=== PATIENT | male | born 1950 | race Caucasian/White ===

== ENCOUNTER 2025-08-07 10:09 | Inpatient (IN) | payer OTHER, MEDICARE ==
[~2025-08-07] VITALS: Ht 182.9 cm; Wt 106.4 kg
--- NOTE | 2025-08-07 10:18 | ELECTROCARDIOGRAPH REPORT ---
[facility] Test Date: 2025-08-07 Test Time: 10:14:52 Pat Name: SARAH HAGEN Department: [facility]- Patient ID: [facility]-[id number] Room: [place] [id number] Gender: M Rolling Attendant: : 1950 Requested By: LEATHA ALARCON Order Number: [id number] Reading MD: Dr. ALVARADO Pedersen Measurements Intervals [place] Rate: 71 P: 38 IL: 221 QRS: -17 QRSD: 136 T: 148 QT: 432 QTc: 470 Interpretive Statements Sinus rhythm Ventricular premature complex Prolonged IL interval Probable left atrial enlargement Nonspecific intraventricular conduction delay Inferior infarct, old Consider anterior infarct Lateral leads are also involved Electronically Signed On 08-09-2025 18:38:[address] ALVARADO Pedersen Please click the below link to view image of tracing.
--- NOTE | 2025-08-07 10:56 | Physician Documentation ---
History of Present Illness ~ Chief Complaint: Chest Pain Stated Complaint: CP/PRESSURE Time Seen by MD: 10:32 HPI Patient presents as a transfer from [facility]. His transfer records reviewed. Patient has past medical history of coronary artery disease status post three-vessel CABG in 2013, recent bowel surgery. He presented with chief complaint of chest heaviness. Cardiology follow up with Dr. Mueller at the [place]. Per documentation does not take medications as prescribed. He takes his aspirin only when he feels like he needs it. Had an echocardiogram that was performed July 04, 2025. LVEF was 35-40%. There was mild LVH. RV mildly dilated with mildly reduced systolic function. Mild MR cardiac catheterization performed at [facility] in 2021. He had severe picayune vessel coronary artery disease and some occluded grafts. Medical management was recommended at the time. Labs reviewed from [facility]: Hemoglobin 13.7, hematocrit 41.5. Platelets low at 94. Sodium 138, potassium 3.6. His BUN is 16 creatinine 0.84. Troponin 0.03. Heart score was documented as six by the transferring center. They were unable to do a stress test at the facility as it is a weekend and therefore was transferred for stress testing. Patient states he has been having chest pain intermittently for which he takes nitroglycerin. Last night around 11 30 he started getting chest pain that was described as pressure in the center of the chest. Associated shortness for breath, dizziness, diaphoresis. It did not go away after taking for nitro so he presented to the emergency department at [facility]. He had a recent bowel surgery last month which was an open surgery secondary to necrotic bowel. No abdominal pain. Passing gas and having normal bowel movements. He has known history of heart failure with reduced ejection fraction. He is not on guideline directed medical therapy. He states he is short of breath with minimal exertion. Was asked, but otherwise denies review of systems. Medication Reconciliation Allergies: Coded Allergies: No Known Allergies (Unverified , 08/07/25) Review of Systems ROS Patient complains of chest pain and shortness for breath as noted in HPI. No orthopnea or PND reported. Was asked, but otherwise denies review of systems. Physical Exam Vital Signs: RN Vital Signs have been reviewed: Yes, Temperature: 98.2, Source: Oral, Heart Rate: 72, Respiratory Rate: 16, BP: 115/74, Pulse Oximetry: 95, Weight: 191.850 Oxygen Flow Rate: 0 Pulse Oximetry Reflects: adequate oxygenation Physical Exam General: Awake, alert, oriented. No apparent distress Neck: Supple. Normal range of motion. No JVD Respiratory: Lungs are clear to auscultation bilaterally. No respiratory distress. Chest: Normal shape and size. No accessory muscle use. Cardiovascular: Regular rate and rhythm. S1-S2. No murmur, gallop, rub. Gastrointestinal: Abdomen is soft. Nontender to palpation. Bowel sounds present. Midline abdominal scar well approximated. Extremities: No lower extremity edema, cyanosis or clubbing. Neurologic: Alert and oriented x4. Nonfocal Psychiatric: Normal mood and affect. Skin: Normal color. Warm and dry. Progress Progress Note 1220: Case discussed with Dr. Tyler, hospitalist who agrees to admit the patient for further evaluation and management of his chest pain. Results/Orders Results/Orders Orders - LYUDMILA BRYANT NP Hs Troponin I W Calculations (08/07/25 12:56) Page Hospitalist (08/07/25 11:52) Fill Out Med Reconciliation (08/07/25 11:52) Completed Orders - LYUDMILA BRYANT NP Hs Troponin I W Calculations (08/07/25 10:56) Medications Received in ER Medications (Trade) Dose Ordered Sig/Irvin Route PRN Reason Start Time Stop Time Status Last Admin Dose Admin Sodium Chloride 1,000 ml @ 50 mls/hr Q20H IV 08/07/25 12:40 08/07/25 13:04 50 MLS/HR Vital Signs 08/07/25 08/07/25 08/07/25 08/07/25 10:11 10:34 10:41 11:24 Temp 98.2 Pulse 72 72 65 Resp 16 16 16 16 B/P (MAP) 115/74 110/66 (81) 111/73 (86) Pulse Ox 95 95 95 O2 Flow Rate 0 0 0 Laboratory Tests Test 08/07/25 11:17 08/07/25 12:49 Troponin I High Sensitivity 18 Medical Decision Making Additional information obtaine: old records Findings Patient presented as a transfer secondary to chest pain for a stress test. He has history of coronary artery disease with history of three-vessel CABG. Last angiogram revealed occlusion of two of his vein grafts. His MARIN to LAD was open at the time. He has been having chest pain intermittently for which he takes nitroglycerin. This usually resolves his pain however last night he took four nitroglycerin and his pain did not resolve prompting his presentation to the emergency department. Pain in the center of the chest and nonradiating. Given his history he was sent for stress testing/cardiology evaluation. His high sensitivity troponin was negative x1. Being admitted to the hospitalist service for further evaluation and management. Of note, he is noncompliant with his medications. He has been told to take a statin however he does not wish to take it. He has also been given guideline directed medical therapy for his heart failure with reduced ejection fraction which he does not take other than carvedilol. I considered high risk diagnoses such as acute myocardial infarction, pulmonary embolism, aortic dissection, pericarditis/myocarditis, pneumothorax, and pneumonia among other diagnoses and I reviewed the ECG for ischemia, arrhythmia, myocardial disease or other cardiac abnormality. He underwent a chest x-ray at the referring facility that was without pneumothorax, pneumonia. Patient being admitted for further evaluation and management of his chest pain. Case discussed with Dr. Mclaughlin who agreed to evaluate patient for admission. Heart Score: 6 Differential Dx:Considerations: Include: angina, aortic dissection, chest wall pain, CHF, esophageal reflux/spasm, myocardial infarction, pericarditis, pleuritis, pneumonia, pulmonary embolus Departure Disposition: 09 ADMITTED INPATIENT Admitted to Inpatient Unit: to hospitalist Admission Level of Care: PCU with Tele Impression: Primary Impression: Chest pain Qualified Codes: R07.9 - Chest pain, unspecified Additional Impression: Systolic heart failure Qualified Codes: I50.22 - Chronic systolic (congestive) heart failure Referrals: NO PRIMARY CARE PROVIDER (PCP) Signature Scribe Signature: No scribe Attestation: The note accurately reflects work and decisions made by me.Lyudmila Bryant - GRZEGORZ 08/07/25 13:15 This note was created with the assistance of voice recognition software whereby errors in grammar, syntax, and/or spelling may have occurred despite active proofreading efforts by the author. Please do not hesitate to contact the provider for clarification or for questions regarding the content of this document. LYUDMILA BRYANT NP Aug 07, 2025 10:56
[2025-08-07] MEDS ORDERED: potassium Cl 40MEQ/1/2NS 520ml 520 ML IV PRN (12:40)
[2025-08-07] MEDS ORDERED: morphine 4 MG/ML inj SYRINge IV PRN ×2 (12:40)
[2025-08-07] MEDS ORDERED: ondansetron/PF 4mg/2ml inj IV PRN (12:40)
[2025-08-07] MEDS ORDERED: HYDROcodone/acetaminophen 5mg/325mg tablet PO PRN (12:40)
[2025-08-07] MEDS ORDERED: magnesium hydroxide 30ml (MOM) UD suspension PO PRN (12:40)
[2025-08-07] MEDS ORDERED: HYDROcodone/acetaminophen 10/325mg tab PO PRN (12:40)
[2025-08-07] MEDS ORDERED: magnesium sulf-water 2g/50mL 50 ML IV PRN (12:40)
[2025-08-07] MEDS ORDERED: magnesium Cl slow-release 64mg tablet PO PRN (12:40)
[2025-08-07] MEDS ORDERED: magnesium sulf-water 4G/100mL 100 ML IV PRN (12:40)
[2025-08-07] MEDS ORDERED: bisacodyl 10mg suppository rectal RC PRN (12:40)
[2025-08-07] MEDS ORDERED: potassium Cl 20 mEq SR tablet PO PRN ×2 (12:40)
[2025-08-07] MEDS: normal saline 1000ml 1,000 ML IV SCH (13:04)
[2025-08-07] MEDS ORDERED: CARV3.12 PO (14:35)
[2025-08-07 17:37] VITALS: BP 111/72; PULSE 78; RESP 18; TEMP 97.7; O2SAT 95
--- NOTE | 2025-08-07 17:58 | HISTORY AND PHYSICAL ---
History & Physical Providers to ~ History of Present Illness Reason for Admit\Complaint: Shortness of breaths on exertion getting worse History of Present Illness Patient is 74-year-old male with coronary artery disease, history of necrotic bowel status post exploratory laparotomy, bipolar disorder, heart failure with reduced ejection fraction, hypertension, history of CABG three way bypass done in past, he went to [facility] because he was feeling chest pressure but when I evaluated him he denied any chest pain to me. He follows with Dr. Danyel Mueller in [place] in [facility]. Denied any other symptoms no nausea no shooting pain towards back or any radiation of chest pain anywhere. He took nitro before going to the ER which relieved his chest pain. He takes aspirin patient is not consistent in taking other cardiac medications. He denied any recent use of alcohol tobacco or any recreational drugs. He is a former smoker. As per [facility] heart score six unable to do stress testing in this facility on weekend and that is the main reason they transferred the patient to [facility]. Discharge diagnosis unstable angina. He denied any ankle swelling shortness of breaths or any other cardiac symptoms to me. All records from [facility] and ER records reviewed. As per records Patient presents as a transfer from [facility]. His transfer records reviewed. Patient has past medical history of coronary artery disease status post three-vessel CABG in 2013, recent bowel surgery. He presented with chief complaint of chest heaviness. Cardiology follow up with Dr. Mueller at the [place]. Per documentation does not take medications as prescribed. He takes his aspirin only when he feels like he needs it. Had an echocardiogram that was performed July 04, 2025. LVEF was 35-40%. There was mild LVH. RV mildly dilated with mildly reduced systolic function. Mild MR cardiac catheterization performed at [facility] in 2021. He had severe ely [place] vessel coronary artery disease and some occluded grafts. Medical management was recommended at the time. Labs reviewed from [facility]: Hemoglobin 13.7, hematocrit 41.5. Platelets low at 94. Sodium 138, potassium 3.6. His BUN is 16 creatinine 0.84. Troponin 0.03. Heart score was documented as six by the transferring center. They were unable to do a stress test at the facility as it is a weekend and therefore was transferred for stress testing. Allergies: Coded Allergies: No Known Allergies (Unverified , 08/07/25) Home Medications Home Medications Active Reported Coreg (Carvedilol) 3.125 Mg Tablet 1 Tab PO Q12H 30 Days Past Medical History Past Medical History coronary artery disease, history of necrotic bowel status post exploratory laparotomy, bipolar disorder, heart failure with reduced ejection fraction, hypertension, history of CABG three way bypass done in past, portal hypertension with esophageal varices, history of incarcerated hernia, noncompliance with medication. Past Surgical History Surgical History Comment Status post exploratory laparotomy, lysis of addition, repair of ventral hernia. Past Social History Social History Comment Patient lives by himself with his cat. He is able to ambulate in his house. Denied use of any alcohol tobacco or any recreational drugs. ROS ROS Review of system as mentioned above in HPI rest of the review of system unremarkable Exam Vitals: Vital Signs Date Time Temp Pulse Resp B/P (MAP) Pulse Ox O2 Delivery O2 Flow Rate FiO2 08/07/25 17:37 97.7 78 18 111/72 (85) 95 08/07/25 14:59 0 General: General-patient not in any acute distress, alert awake oriented, chronically ill-appearing, obese, looks comfortable HEENT-atraumatic normocephalic, neck supple without elevated JVD, no thyromegaly or carotid bruit. No lymphadenopathy bilaterally. Eyes-no icterus or pallor seen in eyes Chest-clear to auscultation bilaterally, breathing nonlabored no tachypnea, no wheezing, no crepitation, no crackles. Heart-S1-S2 normal, regular heart rate no murmur Abdomen bowel sounds positive on auscultation, soft nondistended nontender no guarding, no rigidity Skin no active skin rash. Old healed midline scar present over abdomen Neurology-grossly intact, nonfocal alert awake oriented Extremity- no pedal edema able to move all 4 extremities Psychiatry - patient is not confused or agitated cooperated during physical exa mination Advance Care Planning Advanced Care plannin - 30 Minutes Additional Plan Patient is 74-year-old male with coronary artery disease, history of necrotic bowel status post exploratory laparotomy, bipolar disorder, heart failure with reduced ejection fraction, hypertension, 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 He is admitted today for unstable angina. Ordered echocardiogram stress testing. Patient is strongly advised to be compliant with the cardiac medication and risks explained. We will continue to monitor patient's labs and vitals closely . All labs, d iagnostic workup, old records and ER records and outpatient records [facility] rajiv Hawk reviewed . Needs physical therapy evaluation before discharge . Code status discussed with the patient patient wishes full code Time spent in discussing code status 16 minutes. We will do home medication reconciliation once updated in electronic by nursing staff or pharmacist. Further management depending on response to treatment I will continue to follow patient in a.m. consult [facility] in a.m. after stress testing results. Date of Service: Aug 07, 2025 Billing Provider: GONZALEZ ROJO MD Common Visit Codes: 62456-TIXSEOR INP/OBS CARE (HIGH) Secondary Visit Codes: 03987-FSYVEMPX CARE PLAN 30 MINUTES GONZALEZ ROJO MD Aug 07, 2025 17:58
[2025-08-07] MEDS: K and/or MAG REPLACEMENT MC SCH (20:00)
[2025-08-07] MEDS: heparin, porcine 5000 units/ml vial SQ SCH (20:00)
[2025-08-07 22:00] VITALS: BP 111/66; PULSE 68; RESP 14; TEMP 98.2; O2SAT 95
[2025-08-07 23:02] LABS: MEAN PLATELET VOLUME 7.3 FL (7.4-10.4); RED CELL DISTRIBUTION WIDTH 14.5 % (11.5-14.5)
[2025-08-07 23:20] LABS: CREATININE 0.93 MG/DL (0.60-1.10); TOTAL CARBON DIOXIDE 24.5 MMOL/L (24-32); eCRCL 76 ML/MIN; eGFR 79 ML/MIN
[2025-08-08] VITALS (15 sets, daily range): BP systolic 96–121; BP diastolic 57–74; PULSE 62–97; RESP 14–23; TEMP 97.8–98.8; O2SAT 93–96
[2025-08-08 06:12] LABS: MEAN PLATELET VOLUME 7.3 FL (7.4-10.4); RED CELL DISTRIBUTION WIDTH 14.5 % (11.5-14.5)
[2025-08-08] MEDS: regadenoson 0.4mg/5ml syringe IV ONE (09:47)
--- NOTE | 2025-08-08 11:07 | RADIOLOGY REPORT ---
HISTORY: UNSTABLE ANGINA TECHNIQUE: At peak stress, 34.1 mCi of sestamibi was administered intravenously. Soon thereafter, gated SPECT imaging of the heart was performed with the patient in the supine position. At rest, 8.2 mCi of sestamibi was administered intravenously. Soon thereafter, gated SPECT imaging of the heart was performed with the patient in the supine position. FINDINGS: There is a large transmural perfusion defect at the inferior wall which appears minimally reversible on rest images. There is a mild perfusion defect at the cardiac apex which appears reversible on rest images. The left ventricular cavity dilated with global hypokinesis. Calculated LVEF is 26 %. IMPRESSION: Mild perfusion defect at the cardiac apex which appears reversible on rest images. Large transmural perfusion defect at the inferior wall which appears minimally reversible on rest images. LVEF is 26%. Global hypokinesis.
--- NOTE | 2025-08-08 12:08 | CONSULTATION REPORT - RESIDENT ---
Consult Providers to CC Resident Creating Document: BERTHAMAGDIELJERRY RES History of Present Illness Reason for Admit\Complaint: exertional sob History of Present Illness 74 yr old male Patient transfer from [facility] for CAD stress test .Patient has past medical history of HFrEF, coronary artery disease status post three-vessel CABG in 2013, recent bowel surgery presented with chief complaint of chest heaviness and exertional sob during the time of presentatioon but subsided now. Cardiology follow up with Dr. Mueller at the [place]. Per documentation does not take medications as prescribed. He takes his aspirin only when he feels like he needs it. Had an echocardiogram that was performed July 04, 2025. LVEF was 35-40%. There was mild LVH. RV mildly dilated with mildly reduced systolic function. He had severe ak chin vessel coronary artery disease and some occluded grafts. Medical management was recommended at the time. Patient states he has been having chest pain intermittently for which he takes nitroglycerin. his chest pressure is associated with shortness for breath, dizziness, diaphoresis. It did not go away after taking for nitro so he presented to the emergency department at [facility] and subsequently transferred here. reason for consulation : Positive lexiscan Allergies: Coded Allergies: No Known Allergies (Unverified , 08/07/25) Home Medications Home Medications Active Reported Coreg (Carvedilol) 3.125 Mg Tablet 1 Tab PO Q12H 30 Days Past Medical History Past Medical History coronary artery disease, history of necrotic bowel status post exploratory laparotomy, bipolar disorder, heart failure with reduced ejection fraction, hypertension, history of CABG three way bypass done in past, portal hypertension with esophageal varices, history of incarcerated hernia, noncompliance with medication. Past Surgical History Surgical History Comment Status post exploratory laparotomy, lysis of addition, repair of ventral hernia. Past Social History Social History Comment Patient lives by himself with his cat. He is able to ambulate in his house. Denied use of any alcohol tobacco or any recreational drugs. ROS ROS Review of system as mentioned above in HPI rest of the review of system unremarkable Past Surgical History Surgical History Comment Past Medical History coronary artery disease, history of necrotic bowel status post exploratory laparotomy, bipolar disorder, heart failure with reduced ejection fraction, hypertension, history of CABG three way bypass done in past, portal hypertension with esophageal varices, history of incarcerated hernia, noncompliance with medication. Past Surgical History Surgical History Comment Status post exploratory laparotomy, lysis of addition, repair of ventral hernia. Past Social History Social History Comment Patient lives by himself with his cat. He is able to ambulate in his house. Denied use of any alcohol tobacco or any recreational drugs. KIANNA HUTCHISON Review of system as mentioned above in HPI rest of the review of system unremarkable Past Social History Social History Comment Patient lives by himself with his cat. He is able to ambulate in his house. Denied use of any alcohol tobacco or any recreational drugs. KIANNA HUTCHISON Reviewed in full and negative, except positive positive pertinence as history as in HPI Exam Vitals: Vital Signs Date Time Temp Pulse Resp B/P (MAP) Pulse Ox O2 Delivery O2 Flow Rate FiO2 08/08/25 10:01 76 18 108/65 96 Room Air 08/08/25 08:00 0.0 08/08/25 06:00 98.8 General: General-patient not in any acute distress, alert awake oriented, chronically ill-appearing, obese, looks comfortable HEENT-atraumatic normocephalic, neck supple without elevated JVD, no thyromegaly or carotid bruit. No lymphadenopathy bilaterally. no icterus or pallor seen in eyes Chest And respiratory system: clear to auscultation bilaterally, breathing nonlabored no tachypnea, no wheezing, no crepitation, no crackles. Heart-S1-S2 normal, regular heart rate no murmur Abdomen bowel sounds positive on auscultation, soft nondistended nontender no guarding, no rigidity Skin no active skin rash. Old healed midline scar present over abdomen Neurology-grossly intact, nonfocal alert awake oriented Extremity- no pedal edema able to move all 4 extremities Psychiatry - patient is not confused or agitated cooperated during physical examination Diagnostic Data Last Recorded Lab Results: 08/08/25 0600 08/07/25 2250 Additional Plan Coronary arterial disease status post CABG Chronic ischemic heart disease Medication Noncompliance H Received records from Dr. Mueller's office from [facility] on the problems listed as CABG with a MARIN to the diagonal, weaned to the obtuse marginal and vein to the PDA In December 2017, patient presented to [facility] with the inferior wall SC catheterization with severe ak chin disease, marin patent, weans occluded, PCI attempted but unsuccessful LCX and RCA occluded. In September 2021 presentation with a Mercrandall with acute anterior SC severe ak chin CAD including 80% distal left main artery, RCA, LCA subpleural, two saphenous venous grafts occluded, marin to diagonal patient bag filling to the distal LAD, no clear culprit for intervention. In December 16, 2024 Lexiscan stress test with an inferior infarct and EF of 36% today lexiscan showed Mild perfusion defect at the cardiac apex which appears reversible on rest images, Large transmural perfusion defect at the inferior wall which appears minimally reversible on rest images.LVEF is 26%. Global hypokinesis. and we discussed management options and patient opted for conservative medical management and we recommened for op followup with and patient may get outpatient angiography study with if needed. start [id number] ,[id number],crestor 40 mg,nitro 0.4 mg as needed for chest pain. recommended lipid panel - maintain LDL of less than 55 Heart Failure with reduced Ejection Fraction of 26 % echo showed ef of 40 % but lexiscan showed ef of 26 % start GDMT as tolereated with carvedilol,entresto,farxiga,spirinolactone Jerry Deluca IM Resident,PGY-2 Cardiology Patient seen and examined by Dr. Joe ABBASI. Myocardial perfusion scan being abnormal was discussed with patient. Patient is being semi compliant does not been taking his medications regularly. After explaining he wants to try medical therapy. Medical therapy optimized. Recommend follow up with PMD. Sepsis Screening Reassessment Date: Aug 09, 2025 Date of Service: Aug 08, 2025 Billing Provider: BELKIS FRANCIS MD, VENKATESH, DANIELA Aug 08, 2025 12:08 BELKIS FRANCIS MD Aug 09, 2025 19:09
--- NOTE | 2025-08-08 17:33 | CARDIOLOGY REPORT ---
APPROVED REPORT EXAM: Comprehensive 2D, Doppler, and color-flow Echocardiogram. Patient Location: 3023 c Heart Rate: 60's bpm Rhythm: SINUS Indications ANGINA Corporate Tutor: Blake HUNTER MD Previous echo: NONE AVAILABLE 2D Dimensions RVDd 3.1 cm IVSd 1.1 (0.7-1.1cm) LVDd 5.5 cm PWd 1.2 (0.7-1.1cm) IVSs 1.4 (0.8-1.2cm) LVDs 4.3 (2.5-4.0cm) PWs 1.4 (0.8-1.2cm) LVOT Diameter 2.35 (1.8-2.4cm) LVEF(%) 44.4 (>50%) FS (%) 22.2 % SV 65.5 ml CO 4.8 L/min M-Mode Dimensions Left Atrium(MM) 3.87 (2.5-4.0cm) Aortic Root 4.12 (2.2-3.7cm) MV EPSS 1.4 (<0.5cm) Aortic Valve AoV Peak Crescencio. 208.1 cm/s AoV VTI 40.3 cm AO Peak GR. 17.3 mmHg AO Mean GR. 10 mmHg LVOT VTI 18.97 cm LVOT Peak Crescencio. 101.6 cm/s MARIA(VTI)/BSA 2.04 cm2/m2 MARIA (VTI) 2.04 cm2 AV DI 0.47 % Mitral Valve MV E Velocity 95.0 cm/s MV Peak Gr. 4 mmHg MV DECEL TIME 140 ms MV A Velocity 87.2 cm/s MV PHT 56 ms E/A Ratio 1.1 MVA (PHT) 3.93 cm2 MV VMax 100.4 cm/s LEFT VENTRICLE Normal LV size and wall thickness. Overall systolic function is moderately reduced. LVEF is 40-45%. RIGHT VENTRICLE RV is normal size and function. RV apex appears dilated. ATRIA The left atrium size is normal. AORTIC VALVE Trileaflet AV appears sclerotic without stenosis. No insufficiency by color and spectral flow Doppler. MITRAL VALVE Mild MV annular calcification without stenosis. Trace regurgitation by color and spectral flow Doppler. TRICUSPID VALVE TV appears structurally normal with trace regurgitation by color and spectral flow Doppler. PULMONIC VALVE Normal PV without stenosis, physiologic insufficiency by color and spectral flow Doppler. GREAT VESSELS Aortic root is dilated, at 4.12 cm. PERICARDIUM Normal pericardium. No effusion. Other Information Study Quality: Adequate Conclusion Normal LV size and wall thickness. Overall systolic function is moderately reduced. LVEF is 40-45%. RV is normal size and function. RV apex appears dilated. The left atrium size is normal. Trileaflet AV appears sclerotic without stenosis. No insufficiency by color and spectral flow Doppler. Mild MV annular calcification without stenosis. Trace regurgitation by color and spectral flow Doppler. TV appears structurally normal with trace regurgitation by color and spectral flow Doppler. Aortic root is dilated, at 4.12 cm. Normal pericardium. No effusion.
--- NOTE | 2025-08-08 19:48 | PROGRESS NOTE ---
Daily Progress Note Providers to CC ~ Antibiotic Timeout Antibiotic Ordered?: No Subjective Patient was seen after he had the stress testing done and waiting for results. His Lexiscan results was abnormal I contacted product support specialist Dr. Pedersen on-call and he evaluated the patient. After his discussion with the patient Dr. Pedersen called me and mentioned that he is looking for conservative management for the patient and he discussed same with family members and patient . Cardiology resident evaluated the patient . We will review cardiology consultation and follow the recommendation. Later today in evening patient's nursing staff contacted me that patient wants to go home and he wants to follow with his own her doctor Dr. Mueller in outpatient setting. Objective Vital Signs Date Time Temp Pulse Resp B/P (MAP) Pulse Ox O2 Delivery O2 Flow Rate FiO2 08/08/25 15:00 97.8 73 23 121/69 (86) 96 Room Air 08/08/25 08:00 0.0 echo- Conclusion Normal LV size and wall thickness. Overall systolic function is moderately reduced. LVEF is 40-45%. RV is normal size and function. RV apex appears dilated. The left atrium size is normal. Trileaflet AV appears sclerotic without stenosis. No insufficiency by color and spectral flow Doppler. Mild MV annular calcification without stenosis. Trace regurgitation by color and spectral flow Doppler. TV appears structurally normal with trace regurgitation by color and spectral flow Doppler. Aortic root is dilated, at 4.12 cm. Normal pericardium. No effusion. NM RONNY SCANIMPRESSION: Mild perfusion defect at the cardiac apex which appears reversible on rest images. Large transmural perfusion defect at the inferior wall which appears minimally reversible on rest images. LVEF is 26%. Global hypokinesis. Result Diagram: 08/08/25 0600 08/07/25 2250 General-patient not in any acute distress, alert awake oriented, chronically ill-appearing, obese, looks comfortable HEENT-atraumatic normocephalic, neck supple without elevated JVD, no thyromegaly or carotid bruit. No lymphadenopathy bilaterally. Eyes-no icterus or pallor seen in eyes Chest-clear to auscultation bilaterally, breathing nonlabored no tachypnea, no wheezing, no crepitation, no crackles. Heart-S1-S2 normal, regular heart rate no murmur Abdomen bowel sounds positive on auscultation, soft nondistended nontender no guarding, no rigidity Skin no active skin rash. 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 He is admitted today for unstable angina. Ordered echocardiogram and stress testing. Patient is strongly advised to be compliant with the cardiac medication and risks explained. 08/08-Patient was seen after he had the stress testing done and waiting for results. His Lexiscan results was abnormal I contacted product support specialist Dr. Pedersen on-call and he evaluated the patient. After his discussion with the patient Dr. Pedersen called me and mentioned that he is looking for conservative management for the patient and he discussed same with family members and patient . Cardiology resident evaluated the patient . We will review cardiology consultation and follow the recommendation. Later today in evening patient's nursing staff contacted me that patient wants to go home and he wants to follow with his own her doctor Dr. Mueller in outpatient setting. We will continue to monitor patient's labs and vitals closely . Code status - full code . We will do home medication reconciliation once updated in electronic records . Further management depending on response to treatment I will continue to follow patient in a.m. Date of Service: Aug 08, 2025 Billing Provider: GONZALEZ ROJO MD Common Visit Codes: 48922-ORRFEIRXLG INP/OBS CARE(HIGH) GONZALEZ ROJO MD Aug 08, 2025 19:48
[2025-08-09 02:00] VITALS: BP 90/51; PULSE 67; RESP 16; TEMP 98.1; O2SAT 92
[2025-08-09 06:00] VITALS: BP 106/56; PULSE 66; RESP 16; TEMP 98.3; O2SAT 95
[2025-08-09 06:05] LABS: MEAN PLATELET VOLUME 7.7 FL (7.4-10.4); RED CELL DISTRIBUTION WIDTH 14.6 % (11.5-14.5)
[2025-08-09 06:17] LABS: CREATININE 0.90 MG/DL (0.60-1.10); TOTAL CARBON DIOXIDE 23.5 MMOL/L (24-32); eCRCL 79 ML/MIN; eGFR 82 ML/MIN
[2025-08-09 08:00] VITALS: RESP 16; O2SAT 95
[2025-08-09] MEDS: EMPAGLIFLOZIN 10 MG TABLET PO SCH (09:58)
[2025-08-09] MEDS ORDERED: LOSA25TA41 PO (10:30)
[2025-08-09] MEDS ORDERED: SPIR25TA PO (10:30)
[2025-08-09] MEDS ORDERED: EMPA10TA PO (10:30)
[2025-08-09 11:00] VITALS: BP 107/68; PULSE 65; RESP 17; TEMP 98.3; O2SAT 96
[2025-08-09] MEDS ORDERED: TRIA60LO16 TOP (18:20)
--- NOTE | 2025-08-09 18:24 | DISCHARGE SUMMARY ---
Discharge Summary Providers to CC ~ Discharge Summary Admission Diagnosis: SOB , unstable angina, CAD , s/p CABG Hospital Course DATE OF ADMISSION: 08/07/25 DATE OF DISCHARGE:08/09/25 CBC testing done on August 09, 2025 WBC 3.5 hemoglobin 13 point seven hematocrit 39.9 platelet count 14.6. Serum chemistry done on August 09, 2025 sodium 139 potassium 4.1 creatinine 0.90 GFR 82 normal liver enzymes total bilirubin 1.6 cardiac markers unremarkable. NM RONNY SCANIMPRESSION: Mild perfusion defect at the cardiac apex which appears reversible on rest images. Large transmural perfusion defect at the inferior wall which appears minimally reversible on rest images. LVEF is 26%. Global hypokinesis. ECHOCARDIOGRAM-Conclusion Normal LV size and wall thickness. Overall systolic function is moderately reduced. LVEF is 40-45%. RV is normal size and function. RV apex appears dilated. The left atrium size is normal. Trileaflet AV appears sclerotic without stenosis. No insufficiency by color and spectral flow Doppler. Mild MV annular calcification without stenosis. Trace regurgitation by color and spectral flow Doppler. TV appears structurally normal with trace regurgitation by color and spectral flow Doppler. Aortic root is dilated, at 4.12 cm. Normal pericardium. No effusion. Discharge Diagnosis\Comment: Acute on chronic congestive heart failure with reduced ejection, coronary artery disease, history of necrotic bowel status post exploratory laparotomy, bipolar disorder, hypertension, history of CABG three way bypass surgery Operations\Procedures: None Consultants: Dr. Pedersen Complications: None Condition on DC: Stable New Medications: Empagliflozin (Jardiance) 10 Mg Tablet 10 MG PO DAILY for 30 Days, #30 TAB Losartan Potassium (Losartan Potassium) 25 Mg Tablet 25 MG PO DAILY for 30 Days, #30 TAB Spironolactone (Aldactone) 25 Mg Tablet 12.5 MG PO DAILY@0830 for 30 Days, #30 TAB Continued Medications: Carvedilol (Coreg) 3.125 Mg Tablet 1 TAB PO Q12H for 30 Days, #60 TAB Discharge Summary: Patient is 74-year-old male with coronary artery disease, history of necrotic bowel status post exploratory laparotomy, bipolar disorder, heart failure with reduced ejection fraction, hypertension, 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 He is admitted today for unstable angina. Ordered echocardiogram and stress testing. Patient is strongly advised to be compliant with the cardiac medication and risks explained. 08/08-Patient was seen after he had the stress testing done and waiting for results. His Lexiscan results was abnormal I contacted behavior specialist Dr. Pedersen on-call and he evaluated the patient. After his discussion with the patient Dr. Pedersen called me and mentioned that he is looking for conservative management for the patient and he discussed same with family members and patient . Cardiology resident evaluated the patient . We will review cardiology consultation and follow the recommendation. Later today in evening patient's nursing staff contacted me that patient wants to go home and he wants to follow with his own her doctor Dr. Mueller in outpatient setting. Patient is feeling better she has been afebrile and getting discharged home in stable condition. Patient is seen and examined on the day of discharge. All labs, diagnostic workup and discharge plan discussed with patient and family members in detail before her discharge. All questions and queries answered to the best of my professional medical knowledge. I heard patient's concerns and address appropriately. Patient was cleared by Physical therapy team for home discharge. manager multimedia Eulalia involved in patient's discharge plan. Discharge instructions provided to the patient. please followup with and get outpatient angiography study with if needed. behavior specialist recommended patient on carvedilol,entresto,farxiga,spirinolactone. patient can get the referral to microchip specialist from his PCP for chronic skin issues. Triamcinolone steroid cream prescribed . General-patient not in any acute distress, alert awake oriented, chronically ill -appearing, obese, looks comfortable HEENT-atraumatic normocephalic, neck supple without elevated JVD, no thyromegaly or carotid bruit. No lymphadenopathy bilaterally. Eyes-no icterus or pallor seen in eyes Chest-clear to auscultation bilaterally, breathing nonlabored no tachypnea, no wheezing, no crepitation, no crackles. Heart-S1-S2 normal, regular heart rate no murmur Abdomen bowel sounds positive on auscultation, soft nondistended nontender no guarding, no rigidity Skin -Old healed midline scar present over abdomen, chronic erythematous skin lesion present over left lower extremity Neurology-grossly intact, nonfocal alert awake oriented Extremity- no pedal edema able to move all 4 extremities Psychiatry - patient is not confused or agitated cooperated during physical examination *Problems/Diagnosis: (1) Systolic heart failure Status: Acute Total Time Spent on D/C: > 30 Minutes Date of Service: Aug 09, 2025 Billing Provider: GONZALEZ ROJO MD Common Visit Codes: 89931-PJR/OBS DISCH DAY >30min Problem Qualifiers (1) Systolic heart failure: Qualified Codes: I50.22 - Chronic systolic (congestive) heart failure GONZALEZ ROJO MD Aug 09, 2025 18:17
== END 2025-08-09 12:19 | disposition home or self-care (01) | DRG 291 ==
LOC: ER 10:10 → ED HOLD 12:44 → PCU 3S 17:13
PROVIDERS: ADMIT Internal Medicine; ATTEND Internal Medicine
PROC: 4A02XM4 Measurement of Cardiac Total Activity, External Approach (ICD-10-PCS; principal; 2025-08-08)
PROC: 3E033HZ Introduction of Radioactive Substance into Peripheral Vein, Percutaneous Approach (ICD-10-PCS; 2025-08-08)
DX: I11.0 Hypertensive heart disease with heart failure (principal); I50.23 Acute on chronic systolic (congestive) heart failure; Z95.1 Presence of aortocoronary bypass graft; I25.110 Atherosclerotic heart disease of native coronary artery with unstable angina pectoris; F31.9 Bipolar disorder, unspecified; Z79.84 Long term (current) use of oral hypoglycemic drugs; Z79.82 Long term (current) use of aspirin; Z91.148 Patient's other noncompliance with medication regimen for other reason; Z87.891 Personal history of nicotine dependence
CPT/HCPCS: 36415; 78452; 80053; 84484; 85025; 87081; 93005; 93017; 93306; 96360; 99285; A6258; A6449; A9500; G0378; J2785; J7030